=== PATIENT | female | born 1955 | race Two or more races ===

== ENCOUNTER → 2018-04-16 | Outpatient (CLI) | payer MEDICARE, MEDICAID | END | disposition home or self-care (01) | LOC: HKI 10:58 | DX: M25.562 Pain in left knee (principal) | CPT/HCPCS: 20610 ==

== ENCOUNTER → 2018-05-15 | Outpatient (CLI) | payer MEDICARE, MEDICAID | END | disposition home or self-care (01) | LOC: HKI 11:46 | DX: M25.562 Pain in left knee (principal) | CPT/HCPCS: 20610; 73564-50 ==

== ENCOUNTER → 2019-01-22 | Outpatient (CLI) | payer MEDICARE, MEDICAID | END | disposition home or self-care (01) | LOC: HKI 15:14 | DX: M17.12 Unilateral primary osteoarthritis, left knee (principal); M76.32 Iliotibial band syndrome, left leg | CPT/HCPCS: 20610; 73564 ==